=== PATIENT | female | born 1960 | race Caucasian/White ===

== ENCOUNTER → 2020-11-06 | Outpatient (CLI) | payer BC | LOC: MC.RAD 15:09 | DX: Z12.31 Encounter for screening mammogram for malignant neoplasm of breast (principal) ==

== ENCOUNTER 2020-12-03 14:47 | Outpatient (RCR) | payer OTHER | END 2021-01-17 | disposition home or self-care (01) | LOC: WSOH | DX: S76.311A Strain of muscle, fascia and tendon of the posterior muscle group at thigh level, right thigh, initial encounter (principal); S63.501A Unspecified sprain of right wrist, initial encounter; S63.502A Unspecified sprain of left wrist, initial encounter; M19.039 Primary osteoarthritis, unspecified wrist | CPT/HCPCS: G0283-GP ==

== ENCOUNTER → 2021-09-30 | Outpatient (CLI) | payer BC | LOC: COL.RAD 13:01 | DX: C34.90 Malignant neoplasm of unspecified part of unspecified bronchus or lung (principal) | CPT/HCPCS: A9575 ==

== ENCOUNTER → 2021-10-22 | Outpatient (CLI) | payer BC | LOC: COL.PUL 10:00 | DX: C34.90 Malignant neoplasm of unspecified part of unspecified bronchus or lung (principal) ==

== ENCOUNTER → 2021-11-07 | Outpatient (CLI) | payer BC | LOC: MC.RAD 14:53 | DX: Z12.31 Encounter for screening mammogram for malignant neoplasm of breast (principal) ==

== ENCOUNTER → 2022-12-11 | Outpatient (CLI) | payer BC | LOC: CANSCHCLI → MC.RAD 15:16 | DX: Z12.31 Encounter for screening mammogram for malignant neoplasm of breast (principal) ==